=== PATIENT | male | born 1945 | race Caucasian/White ===

== ENCOUNTER 2016-11-04 11:08 | Day surgery (SDC) | payer MEDICARE, OTHER ==
[~2016-11-04 11:08] MED LIST: CELE40TA PO; DEPA500T3 PO; DULO20 PO; FURO1TAB60 PO; GLIP5TAB8 PO; HEPARIN-NS/PF INJ 500 ML ONE; JANU50TA4 PO; LEVO.2 PO; LEVOFLOXACIN 500 MG PREMIX INJ 100 ML IV ONE; METO50TA11 PO; NITR1SUB3 SL; PRIN10TA PO; QUET1TAB7 PO; ZANT150T2 PO
[2016-11-04] MEDS ORDERED: VANCOMYCIN 1000 MG/NS 250 ML IV SCH ×2 (11:45)
[2016-11-04] MEDS ORDERED: CHLORHEXIDINE GLUCONATE 2 % 1 PACK (2 CLOTHS) TOPICAL SCH (11:45)
[2016-11-04] MEDS ORDERED: ceFAZolin 2 GM PREMIX 50 ML IV SCH (11:45)
[2016-11-04] MEDS ORDERED: LORazepam 1 MG TAB SL SCH (11:45)
[2016-11-04] MEDS ORDERED: NS 1000 ML IV SCH (11:45)
[2016-11-04] MEDS ORDERED: POVIDONE IODINE 5% (ANTISEPSIS KIT) 4 APPLICATIONS EACH NARE SCH (11:45)
== END 2016-11-04 11:43 | disposition home or self-care (01) ==
LOC: HDOC 11:08 → HDIC 11:08 → HDOC 11:43
PROVIDERS: ATTEND Internal Medicine Interventional Cardiology
DX: Z53.29 Procedure and treatment not carried out because of patient's decision for other reasons (principal)
CPT/HCPCS: G0463; J1644; J1956; 99211

== ENCOUNTER 2016-11-29 07:07 | Day surgery (SDC) | payer MEDICARE, OTHER ==
[~2016-11-29 07:07] MED LIST changes: -HEPARIN-NS/PF INJ 500 ML ONE; -LEVOFLOXACIN 500 MG PREMIX INJ 100 ML IV ONE
[2016-11-29] MEDS ORDERED: ASPI325T PO (07:44)
[2016-11-29] MEDS ORDERED: BUTATAB6 PO (07:44)
[2016-11-29] MEDS ORDERED: ATOR40TA16 PO (07:44)
[2016-11-29] MEDS ORDERED: ceFAZolin 2 GM PREMIX 50 ML IV SCH (07:45)
[2016-11-29] MEDS ORDERED: MUPIROCIN 2% OINT 1 APPLIC/GM SYR NASAL SCH (07:45)
[2016-11-29] MEDS ORDERED: NS 1000 ML IV SCH (07:45)
[2016-11-29] MEDS ORDERED: POVIDONE IODINE 5% (ANTISEPSIS KIT) 4 APPLICATIONS EACH NARE SCH (07:45)
[2016-11-29] MEDS ORDERED: VANCOMYCIN 1000 MG/NS 250 ML IV SCH ×2 (07:45)
[2016-11-29] MEDS ORDERED: CHLORHEXIDINE GLUCONATE 2 % 1 PACK (2 CLOTHS) TOPICAL SCH (07:45)
[2016-11-29] MEDS ORDERED: ALBUAER3 INH (07:47)
[2016-11-29] MEDS ORDERED: QUET1TAB9 PO (07:47)
[2016-11-29] MEDS ORDERED: GLIP1TAB51 PO (07:47)
[2016-11-29] MEDS ORDERED: PANT40TA3 PO (07:47)
[2016-11-29] MEDS ORDERED: POTA-245 PO (07:47)
[2016-11-29] MEDS ORDERED: CLON1TAB PO (07:49)
--- NOTE | 2016-11-29 13:27 | MA ---
cc: LIN CHRISTENSEN M.D. DATE: 11/29/2016 TYPE OF PROCEDURE: Loop recorder insertion. HISTORY: Mr. Pavon is a 71-year-old gentleman with history of transient ischemic attack, left atrial enlargement, diabetes mellitus, obesity, high blood pressure, coronary artery disease, coronary bypass grafting, normal ejection fraction, referred by neurologist Dr. Tee for loop recorder insertion. The risks, the nature and the benefit of the procedure are clearly stated to him risks include pneumothorax, cardiac perforation, infection and even . The patient understood and agreed to proceed. PROCEDURE After written informed consent was obtained, the patient was brought to the [facility] where he was prepped and draped in the usual sterile fashion. The patient refused sedation because he is going to drive. The area was anesthetized using 2% Xylocaine. Using the cutter, less than a centimeter was made. Subsequently the loop was injected under the skin. After adequate sensing threshold obtained. The border reapproximated using Dermabond and Steri-Strips. No incident report. The patient tolerated procedure. Blood loss minimal. 1. Implanted hardware. The implanted loop is a [employer]; model number is a Reveal Linq 11, Serial number [id number]. 2. Sensing: sensing is at 0.63 mV. 3. Setting; The patient's loop set for oliver under 40 and tachy over 150. CONCLUSION Successful loop recorder insertion. COMMENT/RECOMMENDATIONS The patient going to be observed. If stable he will be discharged home in a couple of hours. Lin Christensen MD /jay /9:47 AM /1:14 PM
== END 2016-11-29 10:38 | disposition home or self-care (01) ==
LOC: HDOC 07:07 → HDIC 07:07 → HDOC 10:38
PROVIDERS: ATTEND Internal Medicine Interventional Cardiology
DX: G45.9 Transient cerebral ischemic attack, unspecified (principal); E11.9 Type 2 diabetes mellitus without complications; E66.9 Obesity, unspecified; I25.10 Atherosclerotic heart disease of native coronary artery without angina pectoris; I11.0 Hypertensive heart disease with heart failure; I51.89 Other ill-defined heart diseases; I50.9 Heart failure, unspecified; I25.5 Ischemic cardiomyopathy; F31.9 Bipolar disorder, unspecified; I25.2 Old myocardial infarction; Z95.1 Presence of aortocoronary bypass graft; Z79.82 Long term (current) use of aspirin; Z79.84 Long term (current) use of oral hypoglycemic drugs
CPT/HCPCS: 33282; C1764; J0690; J7030